=== PATIENT | female | born 1935 | race African-American/Black ===

== ENCOUNTER → 2016-12-08 | Outpatient (CLI) | payer MEDICARE, OTHER ==
[~2016-12-08] MED LIST: Amaryl PO; Cozaar PO; Feosol PO; Pravachol PO; Vicodin,Norco 5/325 PO; celeBREX PO
== END | disposition home or self-care (01) ==
LOC: CDC 09:47
DX: M79.642 Pain in left hand (principal); G56.02 Carpal tunnel syndrome, left upper limb
CPT/HCPCS: 93000